=== PATIENT | male | born 1985 | race Caucasian/White ===

== ENCOUNTER 2020-12-12 23:42 | Emergency (ER) | payer OTHER ==
[~2020-12-12] VITALS: Ht 172.7 cm; Wt 100.0 kg
[2020-12-13 04:25] VITALS: BP 130/79
== END 2020-12-13 05:33 | disposition home or self-care (01) ==
LOC: ER 23:42
DX: F10.129 Alcohol abuse with intoxication, unspecified (principal); Y90.0 Blood alcohol level of less than 20 mg/100 ml
CPT/HCPCS: 82962; 93005; 99283